=== PATIENT | male | born 1965 | race Caucasian/White ===

== ENCOUNTER 2017-02-16 23:28 | Emergency (ER) | payer OTHER ==
[2017-02-16 23:48] VITALS: BP 108/68; PULSE 71; TEMP 98; BMI 23.3
--- NOTE | 2017-02-17 00:45 | PDOC ---
History of Present Illness - General Chief Complaint: Nasal Bleeding Stated Complaint: NOSEBLEED Time Seen by Provider: 02/17/17 00:04 History Source: Patient Exam Limitations: No Limitations - History of Present Illness Initial Comments: 02/17/17 00:39 This is a 51-year-old male who comes in complaining of epistaxis. Patient has had several nosebleeds over the last 4-5 days. Patient [place] leaving the airport [place] to get on a flight when his nose started bleeding and he couldn't get it to stop so he comes in for evaluation. By the time patient arrived in the emergency room his nosebleed had stopped. Patient says he does take a baby aspirin a day otherwise no tenderness PAST MEDICAL HISTORY: no significant history PAST SURGICAL HISTORY: no significant history FAMILY HISTORY: no pertinant history SOCIAL HISTORY: Pt lives with family and is employed. MEDICATIONS: reviewed ALLERGIES: As per nursing notes Review of Systems General: No fevers or chills, no weakness, no weight loss HEENT: No change in vision. No sore throat,. No ear pain, positive nosebleed CardioVascular: No chest pain or shortness of breath Respiratory:No cough, or wheezing. Gastrointestinal: no nausea, vomitting, diarrhea or constipation, No rectal bleeding Genitourinary: No dysuria, hematuria, or frequency Musculoskeletal: No joint or muscle pain or swelling Neurologic: No headache, vertigo, dizziness or loss of consciousness Psychiatric: nor depression Skin: No rashes or easy bruising Endocrine: no increased thirst or abnormal weight change Allergic: no skin or latex allergy All other systems reviewed and normal GENERAL: The patient is awake, alert, and fully oriented, in no acute distress. HEAD: Normal with no signs of trauma. NOSE: There is no active bleeding at this time however there is a small area that does appear to have been bleeding recently with a small clot on it. Patient blew his nose and the area began to ooze. EYES: Pupils equal, round and reactive to light, extraocular movements intact, sclera anicteric, conjunctiva clear. EXTREMITIES: Normal range of motion, no edema. NEUROLOGICAL: Normal speech, normal gait. PSYCH: Normal mood, normal affect. SKIN: Warm, Dry, normal turgor, no rashes or lesions noted. Procedure note area of the bleeding was cauterized with silver nitrate. Patient tolerated well Assessment and plan: This is a 51-year-old male who comes in complaining of epistaxis multiple times over the last several weeks. Patient has an area of his nose that I did cauterize and has an ENT he can follow-up with. A CBC and the PT PTT were sent however patient did not want to wait for the results and I will call him if they are abnormal. Lab work was all normal and patient was given results in the morni Past History - Past Medical History Allergies/Adverse Reactions: Allergies Allergy/AdvReac Type Severity Reaction Status Date / Time No Known Allergies Allergy Unverified 02/16/17 23:39 Home Medications: Ambulatory Orders Aspirin [Ecotrin] 81 mg PO DAILY 02/16/17 Atorvastatin Ca [Lipitor] 20 mg PO HS 02/16/17 Beta-Carotene(A)-C,E/Selenium [Super Antioxidant Capsule] 1 each PO DAILY Bimatoprost [Lumigan] 1 drop IO DAILY 02/16/17 Brimonidine Tartrate [Alphagan P 0.1% -] 1 drop OU TID 02/16/17 Dorzolamide/Timolol/Pf [Cosopt Pf Eye Drops] 1 each OP DAILY 02/16/17 Lisinopril/Hydrochlorothiazide [Lisinopril-Hctz 10-12.5 mg Tab] 1 each PO DAILY 02/16/17 Multivitamins [Tab-A-Vit -] 1 tab PO DAILY 02/16/17 - Psycho/Social/Smoking Cessation Hx Suicidal Ideation: No Smoking History: Never smoked *Physical Exam - Vital Signs Last Vital Signs Temp Pulse Resp BP Pulse Ox 98 F 71 16 108/68 97 02/16/17 23:46 02/16/17 23:46 02/16/17 23:46 02/16/17 23:46 02/16/17 23:46 ED Treatment Course - LABORATORY CBC & Chemistry Diagram: 02/17/17 00:48 *DC/Admit/Observation/Transfer Diagnosis at time of Disposition: Epistaxis - Discharge Dispostion Disposition: HOME Condition at time of disposition: Stable Admit: No - Referrals Referrals: Christian Moore [Primary Care Provider] - - Patient Instructions Printed Discharge Instructions: DI for Nosebleed Additional Instructions: Follow-up with an ENT. I sent a CBC and blood clotting factors. I will call you if they are abnormal otherwise if you do not hear from me tonight call in the morning for the results. The phone number here is [phone]. Return to the emergency department immediately with ANY new, persistent or worsening symptoms. Continue any medications as previously prescribed by your physician. You should follow up with your primary doctor as soon as possible regarding today's emergency department visit. . Please make sure your doctor reviews the results of your emergency evaluation. Thank you for coming to the Emergency Department today for your care. It was a pleasure to see you today. Please note that your evaluation is INCOMPLETE until you follow-up with your doctor.
[2017-02-17 02:09] LABS: BASOPHIL 1.3 % (0-2.0); EOSINOPHIL 4.1 % (0-4.5); MCH 31.7 pg (25.7-33.7); MCHC 33.8 g/dl (32.0-35.9); MEAN CELL VOLUME 93.7 fl (80-96); MEAN PLT VOLUME 9.9 fl (7.5-11.1); NEUTROPHILS 45.7 % (42.8-82.8); PLATELET COUNT 235 K/MM3 (134-434); RDW 12.9 % (11.9-15.9); WHITE BLOOD COUNT 6.6 K/mm3 (4.0-10.0)
[2017-02-17 02:21] LABS: INR 0.94 (0.82-1.09); PROTHROMBIN TIME (PATIENT) 10.3 SEC (9.98-11.88)
== END 2017-02-17 00:52 | disposition home or self-care (01) ==
LOC: FER 23:28
PROC: 095L7ZZ Destruction of Nasal Turbinate, Via Natural or Artificial Opening (ICD-10-PCS; principal; 2017-02-16)
DX: R04.0 Epistaxis (principal); Z79.82 Long term (current) use of aspirin
CPT/HCPCS: 36415; 85025; 85610; 85730; 99281-25